=== PATIENT | male | born 1960 | race Caucasian/White ===

== ENCOUNTER 2017-08-24 06:20 | Day surgery (SDC) | payer MEDICAID ==
[2017-08-18 09:36] VITALS: BMI 31.1
[2017-08-24] MEDS ORDERED: Iohexol 240 (50 ml) ONE (08:43)
[2017-08-24] MEDS ORDERED: Lidocaine 2% Jelly (Uro-Jet) ONE (08:43)
[2017-08-24] MEDS ORDERED: Midazolam 2 MG/2 ML VIAL ONE (08:54)
[2017-08-24] MEDS ORDERED: Propofol 10 mg/ml Inj (20 ML) ONE (08:54)
[2017-08-24] MEDS ORDERED: Lactated Ringer's 1,000 ML IV ONE ×2 (08:58)
[2017-08-24] MEDS: Ciprofloxacin 400mg/200ml D5W 400 MG/200 ML BAG IVPB ONE ×2 (08:58→09:01)
[2017-08-24] MEDS: Gentamicin 160 MG in Sodium Chloride 0.9% 100 ML IVPB ONE ×2 (08:58→09:20)
--- NOTE | 2017-08-24 09:25 | PCM.SURG1 ---
Surgeon's Initial Post Op Note - Surgeon's Notes Surgeon: Amee Varnishing Machine Operator: pillo Type of Anesthesia: General LMA Anesthesia Administered By: staff Pre-Operative Diagnosis: Left ureteral and left renal calculi Operative Findings: no visualized ureteral stone Post-Operative Diagnosis: same Operation Performed: left ureteroscopy Specimen/Specimens Removed: na Estimated Blood Loss: EBL {In ML}: 0 Blood Products Given: N/A Drains Used: No Drains Post-Op Condition: Good Date of Surgery/Procedure: 08/24/17 Time of Surgery/Procedure: 09:24
[2017-08-24 11:07] VITALS: RESP 15
[2017-08-24] MEDS ORDERED: Oxycodone/Acetaminophen 5/325 mg Tab PO ONE (12:15)
[2017-08-24 14:02] VITALS: BP 126/71; PULSE 71; TEMP 97.2; O2SAT 100
--- NOTE | 2017-08-24 14:50 | RAD ---
HISTORY: LEFT URETERAL STONE-LEFT KIDNEY STONE COMPARISON: No prior. FINDINGS: BOWEL: Stool retention -especially right-sided No obstruction. No free air. BONES: Spondylosis thoracolumbar spine. Bilateral hip arthrosis with patchy bone mineralization over each femoral head. OTHER FINDINGS: Evaluation for right renal calculi is even more limited given the obscuring more extensive stool contents here right renal calculi similar in size cannot be excluded. Bilateral hemipelvic phleboliths non larger than 2 mm in size suggested IMPRESSION: Renal urolithiasis not excluded -as described above. Finding stool impedes optimal evaluation. Consider CT of the abdomen and pelvis without oral or IV contrast -if further evaluation is needed
--- NOTE | 2017-08-24 14:52 | RAD ---
PROCEDURE: HISTORY: Left ureteral stone -left kidney stone COMPARISON: Abdomen flat plate 0846 hour TECHNIQUE: Total fluoroscopic time utilized during the procedure: 3 point now seconds. Total dose 0.17121 mGy cm squared FINDINGS: Submitted images from the current procedure: 4 Please refer to the physician's notes performing the procedure. IMPRESSION: Less than 1 hour fluoroscopic time utilized during performance of the procedure
--- NOTE | 2017-08-24 17:20 | OP ---
PROCEDURE DATE: 08/24/2017 PREOPERATIVE DIAGNOSES: Left lower ureteral calculi and left renal calculi. POSTOPERATIVE DIAGNOSIS: No visualization of lower ureteral calculi. DESCRIPTION OF PROCEDURE: As follows; prior to the procedure, the CAT scan at the [facility] was reviewed, the both films and reports showing a lower ureteral calculi and a renal calculi. The patient was asked to sign the detailed informed consent after reviewing all the risks and complications of ureteroscopy in other ways of managing a ureteral and renal calculi. He is willing to accept the risks and signed the consent, was brought into the room and draped and prepped in the usual manner. Then, he was cystoscoped with a #21 Storz panendoscope. The pendulous and membranous urethra were normal. 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 The bladder was entered atraumatically. There was no evidence of urothelial tumor or stone. The left ureteral orifice was visualized and showed clear efflux. The right ureteral orifice also showed clear efflux. The guidewire was passed up the left ureteral orifice and up to the renal pelvis without difficulty. The scope was backed out with a guidewire in place, and the ureteroscope was then inserted per the urethra and passed out into the bladder without difficulty. The left ureteral orifice was localized and the second guidewire was passed into the ureteral orifice and the left orifice was then highly dilated. The scope was passed up to the ureter and all the way up into the upper third of the ureter and there was no evidence of stone within the ureter. Based on the these findings, it appears that the patient has passed the stone. The scope and the wires were then backed out, leaving no wires or scope in the patient. The patient tolerated this procedure well. Fluoroscopy also did not visualized the left renal calculi, it is not clear whether it is still present or radiolucent. The patient tolerated this procedure well. He was given a detailed explanation of findings of this procedure and told to follow up in our office in approximately 2 weeks. Arya Lubin MD
== END 2017-08-24 12:50 | disposition home or self-care (01) ==
LOC: C.SDS 06:20
PROVIDERS: ATTEND Urology
DX: N20.1 Calculus of ureter (principal); N20.2 Calculus of kidney with calculus of ureter
CPT/HCPCS: 52351; 74000; 82948; C1769; J0744; J1580; J7120